=== PATIENT | female | born 1970 | race Caucasian/White ===

== ENCOUNTER 2017-01-22 15:02 | Emergency (ER) | payer OTHER ==
[~2017-01-22] VITALS: Ht 175.3 cm; Wt 98.3 kg
[~2017-01-22 15:02] MED LIST: None per pt.
[2017-01-22] MEDS ORDERED: HYDROmorphone 1 MG/ML, 1ML IM ONE (15:30)
[2017-01-22] MEDS ORDERED: ONDANSETRON ODT 4 MG PO ONE (15:30)
[2017-01-22] MEDS ORDERED: ONDANSETRON ODT 4 MG ONE (15:30)
[2017-01-22] MEDS ORDERED: SODIUM CHLORIDE FLUSH 10ML SYR IVF ONE (15:30)
[2017-01-22] MEDS ORDERED: LIDOCAINE 1%, 20ML SQ ONE (15:30)
[2017-01-22] MEDS ORDERED: LIDOCAINE 1%, 20ML ONE (15:30)
[2017-01-22] MEDS ORDERED: HYDROmorphone 1 MG/ML, 1ML ONE ×2 (15:31→16:09)
[2017-01-22] MEDS: HYDROmorphone 1 MG/ML, 1ML IVPush PRN ×2 (15:38→16:14)
[2017-01-22 17:07] VITALS: BP 99/64
== END 2017-01-22 17:11 | disposition home or self-care (01) ==
LOC: ED 15:37
DX: N75.0 Cyst of Bartholin's gland (principal)
CPT/HCPCS: 56420; 96374; 99284; J1170; Q0162

== ENCOUNTER 2017-05-23 21:04 | Emergency (ER) | payer OTHER ==
[~2017-05-23] VITALS: Ht 175.3 cm; Wt 103.2 kg
[2017-05-23 21:12] VITALS: BP 128/86
== END 2017-05-23 22:32 | disposition home or self-care (01) ==
LOC: ED 22:01
DX: S61.451A Open bite of right hand, initial encounter (principal); S99.911A Unspecified injury of right ankle, initial encounter; L03.113 Cellulitis of right upper limb; L03.114 Cellulitis of left upper limb; L03.116 Cellulitis of left lower limb; L03.115 Cellulitis of right lower limb; Z87.891 Personal history of nicotine dependence; W55.01XA Bitten by cat, initial encounter; Y93.89 Activity, other specified; Y92.89 Other specified places as the place of occurrence of the external cause; Y99.8 Other external cause status
CPT/HCPCS: 99284